=== PATIENT | female | born 1980 | race Caucasian/White ===

== ENCOUNTER 2020-04-26 19:25 | Emergency (ER) | payer OTHER, SELFPAY ==
--- NOTE | ~2020-04-26 | XR_ITS ---
EXAMINATION: XR CHEST CLINICAL INFORMATION: Pleuritic chest pain. COMPARISON: Most recent chest radiograph dated 11/04/2018. TECHNIQUE: 2 views of the chest were obtained. FINDINGS: The lungs are clear. The cardiomediastinal silhouette is normal in size. There is no pleural effusion or pneumothorax. No acute osseous abnormality. XR/XR chest 2V IMPRESSION: No acute cardiopulmonary findings.
--- NOTE | 2020-04-26 19:51 | ECG_ITS ---
Test Reason : CP Blood Pressure : / mmHG Vent. Rate : 078 BPM Atrial Rate : 078 BPM P-R Int : 146 ms QRS Dur : 082 ms QT Int : 392 ms P-R-T Axes : 031 016 011 degrees QTc Int : 446 ms Normal sinus rhythm Possible Left atrial enlargement Borderline ECG When compared with ECG of 04-NOV-2018 01:47, No significant change was found Referred By: Generic ED Physician Electronically Signed By:SARA BARR
[2020-04-26 20:29] VITALS: BP 128/73; PULSE 73; RESP 18; TEMP 36.6; O2SAT 99; BMI 25.0
--- NOTE | 2020-04-26 20:37 | ED_ITS ---
HPI - Chest Pain General Chief Complaint: Chest Pain Stated Complaint: CHEST PAIN Time Seen by Provider: 04/26/20 21:08 Source: patient Mode of arrival: ambulatory Limitations: no limitations History of Present Illness HPI narrative: Patient presents to ED for chest pain on inspiration for 1 week. Patient states she has been stressed and had symptoms such as anxiety described as tingling in face and extremities, sometimes chest pain on inspiration. Patient states having family issues. Patient denies any shortness of breath on exertion, swelling of lower extremity, calf pain, coughing up blood, fever, chills, recent long travel, recent surgery, control use, or any history of blood clots Related Data Allergies Allergy/AdvReac Type Severity Reaction Status Date / Time Sulfa (Sulfonamide Allergy Mild RASH Unverified 10/24/19 18:01 Antibiotics) [SULFA (SULFONAMIDE ANTIBIOTICS)] Review of Systems Review of Systems: Yes all other systems are reviewed and are negative Constitutional: Constitutional: Reports as per HPI and Reports no additional constitutional complaints Eyes: Eyes: Reports as per HPI and Reports no additional eye complaints ENT: Reports system reviewed and no additional complaints, except as documented and Reports as per HPI Cardiovascular: Cardiovascular: Reports as per HPI, Reports no additional cardiovascular complaints and Reports chest pain Respiratory: Respiratory: Reports as per HPI and Reports no additional respiratory complaints Gastrointestinal: Gastrointestinal: Reports as per HPI and Reports no additional gastrointestinal complaints Genitourinary: Genitourinary: Reports no additional female genitourinary complaints and Reports as per HPI Musculoskeletal: Musculoskeletal: Reports no additional musculoskeletal complaints and Reports as per HPI Neurologic: Reports system reviewed and no additional complaints, except as documented and Reports as per HPI Psychiatric: Psychiatric: Reports no additional psychiatric complaints and Reports as per HPI Comments: Anxiety [facility] Past Medical History Medical History (Updated 04/27/20 @ 00:01 by Background Daemon) No known health problems Social History Social History Alcohol intake: never Smoking Status: Never smoker Use of substances other than those prescribed or required for medical reasons: No Advance Directives: No Physical Exam Vital Signs: Vital Signs: Last Vital Signs Temp 97.9 F 04/26/20 20:29 Pulse 73 04/26/20 20:29 Resp 18 04/26/20 20:29 BP 128/73 04/26/20 20:29 Pulse Ox 99 04/26/20 20:29 Body Mass Index 25.0 Const: General: cooperative, healthy appearing, comfortable, no acute distress, well developed, alert, awake and Physically active Orientation/consciousness: patient oriented x3 HENMT: Head: Yes normal to inspection, Yes No palpable skull fracture present, Yes normocephalic, Yes atraumatic and No abrasion Eyes: General: appearance normal, both eyes and all related structures Neck: Neck: Yes normal visual inspection, Yes full ROM, Yes no lymphadenopathy, Yes no meningeal signs, Yes trachea midline, Yes supple and No tender Chest: Chest palpation & inspection: normal inspection of the chest and normal palpation of entire chest wall Resp: Effort & Inspection: normal respiratory effort and able to speak in complete sentences Auscultation: clear to auscultation bilaterally Cardio: Jugular venous distension: no JVD Heart sounds: S1 normal heart sound present and S2 normal heart sound present GI: Inspection: Yes normal to inspection and No abdominal wall ecchymosis Palpation (GI): Soft to palpation, not firm, nontender, no guarding and not rigid : General: No CVA tenderness and Yes no CVA tenderness Back/Spine/Pelvis: Back: no CVA tenderness, No CVA tenderness and No back tenderness Skin: General skin exam: no rashes or lesions noted and elasticity normal Neuro: General: patient oriented x3, no meningeal signs and CN's II-XI intact bilaterally Cranial nerves: Yes CN's II-XII intact bilaterally Extrem: Other: Negative for any swelling, pitting edema, redness, or calf tenderness. General: Yes normal to inspection and Yes full ROM Psych: Appearance: grossly normal, well kempt and not disheveled Course Course Course Narrative: Patient admits having family issues with son causing tightness & chest pain. May be due to anxiety, but will do medical evaluation. Patient also states she has had negative COVID test 2 days ago and does not want another COVID test. Patient states he gets test every 2 weeks at work. Reevaluation(s) Reevaluation #1: EKG negative STEMI. Troponin -1 week of chest pain. D-dimer negative. Perc score 0. Chest x-ray normal. Labs are normal. Patient states she would like to be discharged and follow up with her doctor. Patient presently denies any chest pain Time: 22:52 [facility] - Chest Pain Lab Data Result diagrams: 04/26/20 21:08 04/26/20 21:08 Labs: Lab Results 04/26/20 04/26/20 04/26/20 Range/Units 21:08 21:08 21:08 WBC 8.7 (4.8-10.8) X10*3/uL RBC 4.34 (4.20-5.50) X10*6/uL Hgb 12.7 (12.0-16.0) g/dl Hct 38.9 (37-47) % MCV 89.6 (80-98) fL MCH 29.3 (27.0-33.0) pg MCHC 32.6 (31.0-35.0) g/dl RDW 12.0 (11.0-16.0) % Plt Count 237 (160-400) X10*3/uL MPV 11.2 (9.4-12.3) fL Immature Gran % (Auto) 0.1 (0.0-0.4) % Neut % (Auto) 56.8 (45-73) % Lymph % (Auto) 32.0 (20-40) % [place] % (Auto) 7.9 (2-11) % Eos % (Auto) 2.6 (0-4) % Baso % (Auto) 0.6 (0-2) % Lymph # (Auto) 2.8 (1.2-4.9) X10*3/uL [place] # (Auto) 0.7 (0.1-1.2) X10*3/uL Eos # (Auto) 0.2 (0.0-0.4) X10*3/uL Baso # (Auto) 0.1 (0.0-0.2) X10*3/uL Abs Immat Gran (auto) 0.01 (0.00-0.03) X10*3/uL Absolute Neuts (auto) 5.0 (2.0-8.3) X10*3/uL Absolute Nucleated RBC 0.000 (0.0-0.012) X10*3/uL Nucleated RBC % (auto) 0.0 (0.0-0.2) /100WBC PT 12.3 (10.8-13.0) SEC INR 1.0 (0.9-1.1) APTT 31.1 (24.1-38.0) SEC D-Dimer < 200 NG/ML Sodium 140 (135-145) mmol/L Potassium 3.8 (3.3-5.1) mmol/L Chloride 102 (96-108) mmol/L Carbon Dioxide 27 (22-29) mmol/L Anion Gap 15 (12-20) BUN 17 H (9-16) mg/dL Creatinine 0.68 (0.5-1.4) mg/dL Estim Creat Clear Calc 98.9 Estimated GFR > 60 Random Glucose 99 (60-115) mg/dL Calcium 8.9 (8.4-10.2) mg/dL Total Bilirubin 0.2 (0.0-1.0) mg/dL AST 25 (5-31) U/L ALT 42 H (0-31) U/L Alkaline Phosphatase 58 (39-117) U/L Troponin I High Sens (<3.5-17.0) ng/L Total Protein 7.6 (6.5-8.0) g/dL Albumin 4.1 (3.5-5.0) g/dL Beta HCG, Quant < 2 mIU/mL 04/26/20 Range/Units 21:08 WBC (4.8-10.8) X10*3/uL RBC (4.20-5.50) X10*6/uL Hgb (12.0-16.0) g/dl Hct (37-47) % MCV (80-98) fL MCH (27.0-33.0) pg MCHC (31.0-35.0) g/dl RDW (11.0-16.0) % Plt Count (160-400) X10*3/uL MPV (9.4-12.3) fL Immature Gran % (Auto) (0.0-0.4) % Neut % (Auto) (45-73) % Lymph % (Auto) (20-40) % [place] % (Auto) (2-11) % Eos % (Auto) (0-4) % Baso % (Auto) (0-2) % Lymph # (Auto) (1.2-4.9) X10*3/uL [place] # (Auto) (0.1-1.2) X10*3/uL Eos # (Auto) (0.0-0.4) X10*3/uL Baso # (Auto) (0.0-0.2) X10*3/uL Abs Immat Gran (auto) (0.00-0.03) X10*3/uL Absolute Neuts (auto) (2.0-8.3) X10*3/uL Absolute Nucleated RBC (0.0-0.012) X10*3/uL Nucleated RBC % (auto) (0.0-0.2) /100WBC PT (10.8-13.0) SEC INR (0.9-1.1) APTT (24.1-38.0) SEC D-Dimer NG/ML Sodium (135-145) mmol/L Potassium (3.3-5.1) mmol/L Chloride (96-108) mmol/L Carbon Dioxide (22-29) mmol/L Anion Gap (12-20) BUN (9-16) mg/dL Creatinine (0.5-1.4) mg/dL Estim Creat Clear Calc Estimated GFR Random Glucose (60-115) mg/dL Calcium (8.4-10.2) mg/dL Total Bilirubin (0.0-1.0) mg/dL AST (5-31) U/L ALT (0-31) U/L Alkaline Phosphatase (39-117) U/L Troponin I High Sens < 3.5 (<3.5-17.0) ng/L Total Protein (6.5-8.0) g/dL Albumin (3.5-5.0) g/dL Beta HCG, Quant mIU/mL ECG Data ECG #1: Interpretation: Normal sinus rhythm. Ventricular rate 78. Pr interval 146. QRS 82. QTC 446. Negative STEMI. Discharge Plan Discharge Clinical Impression: Chest pain, Atypical chest pain Patient Disposition: Home, Self-Care Instructions: Chest Pain (ED) Additional Instructions: Return to the ED immediately for swelling of lower extremity, coughing up blood, fever, chills, worsening chest pain, calf pain, passing out, dizziness or any other concerning symptoms. Please follow-up with the PCP. EKG normal. Do troponin was negative. D-dimer was negative. chest x-ray was normal. Stand Alone Forms: Work/School Release Interventions: ED Discharge Assessment Last Done: 04/26/20 23:13 Discharge Date/Time: 04/26/20 23:15 Print Language: Persian
[2020-04-26 21:13] LABS: MANUAL DIFF FLAG NO
[2020-04-26 21:21] LABS: Basophils Absolute Auto 0.1 X10*3/uL (0.0-0.2); Basophils Percent Auto 0.6 % (0-2); Eosinophils Absolute Auto 0.2 X10*3/uL (0.0-0.4); Eosinophils Percent Auto 2.6 % (0-4); Hematocrit 38.9 % (37-47); Hemoglobin 12.7 g/dl (12.0-16.0); Imm Gran Abs Auto 0.01 X10*3/uL (0.00-0.03); Imm Gran Pct Auto 0.1 % (0.0-0.4); Lymphocytes Absolute Auto 2.8 X10*3/uL (1.2-4.9); Mean Corpuscular HGB Conc 32.6 g/dl (31.0-35.0); Mean Corpuscular Hemoglobin 29.3 pg (27.0-33.0); Mean Corpuscular Volume 89.6 fL (80-98); Mean Platelet Volume 11.2 fL (9.4-12.3); Monocytes Absolute Auto 0.7 X10*3/uL (0.1-1.2); Monocytes Percent Auto 7.9 % (2-11); Neutrophils Percent Auto 56.8 % (45-73); Platelet Count 237 X10*3/uL (160-400); Red Blood Count 4.34 X10*6/uL (4.20-5.50); White Blood Count 8.7 X10*3/uL (4.8-10.8)
[2020-04-26 21:29] LABS: Prothrombin Time 12.3 SEC (10.8-13.0)
[2020-04-26 21:32] LABS: Partial Thromboplastin Time 31.1 SEC (24.1-38.0)
[2020-04-26 21:34] LABS: Alanine Aminotransferase 42 U/L (0-31); Albumin Level 4.1 g/dL (3.5-5.0); Alkaline Phosphatase 58 U/L (39-117); Anion Gap 15 (12-20); Aspartate Amino Transferase 25 U/L (5-31); Bilirubin Total 0.2 mg/dL (0.0-1.0); Blood Urea Nitrogen 17 mg/dL (9-16); Calcium 8.9 mg/dL (8.4-10.2); Carbon Dioxide 27 mmol/L (22-29); Chloride 102 mmol/L (96-108); Creatinine Clr Calc Pharmacy 98.9; D Dimer < 200 NG/ML; Estimated Glomerular Filt Rate > 60; Glucose Random 99 mg/dL (60-115); Potassium 3.8 mmol/L (3.3-5.1); Sodium 140 mmol/L (135-145); Total Protein 7.6 g/dL (6.5-8.0)
[2020-04-26 21:40] LABS: HCG Quantitative < 2 mIU/mL
[2020-04-26 21:41] LABS: Troponin-I High Sensitivity < 3.5 ng/L (<3.5-17.0)
== END 2020-04-26 23:15 | disposition home or self-care (01) ==
PROVIDERS: Physician Assistant; Emergency Provider Internal Medicine
DX: R07.9 Chest pain, unspecified (principal); R07.89 Other chest pain
CPT/HCPCS: 36415; 71046; 80053; 84484; 84702; 85025; 85379; 85610; 85730; 93005; 99283; 99284

== ENCOUNTER 2020-05-05 09:56 | Outpatient (REF) | payer OTHER, SELFPAY ==
[2020-05-05 13:14] LABS: SARS COV2 PCR INHOUSE NEGATIVE (Negative)
== END 2020-05-05 09:57 | disposition home or self-care (01) ==
LOC: HO.LAB 09:56
PROVIDERS: Visit Provider Internal Medicine
DX: Z20.822 Contact with and (suspected) exposure to COVID-19 (principal)
CPT/HCPCS: C9803; U0003

== ENCOUNTER 2020-09-22 07:26 | Outpatient (REF) | payer OTHER, SELFPAY | END 2020-09-22 07:27 | disposition home or self-care (01) | LOC: HO.LAB 07:26 | PROVIDERS: Visit Provider Internal Medicine | DX: Z20.822 Contact with and (suspected) exposure to COVID-19 (principal) | CPT/HCPCS: C9803; U0003; U0005 ==

== ENCOUNTER 2020-10-01 08:11 | Outpatient (REF) | payer OTHER, SELFPAY ==
[2020-10-01 09:34] LABS: COVID-19 Test Negative (Negative)
== END 2020-10-01 08:12 | disposition home or self-care (01) ==
LOC: HO.LAB 08:11
PROVIDERS: Visit Provider Internal Medicine
DX: Z20.822 Contact with and (suspected) exposure to COVID-19 (principal)
CPT/HCPCS: 36415; 87635; C9803

== ENCOUNTER 2021-02-18 08:30 | Outpatient (REF) | payer OTHER, SELFPAY ==
[2021-02-18 10:06] LABS: COVID-19 Test Negative (Negative)
== END 2021-02-18 08:31 | disposition home or self-care (01) ==
LOC: HO.LAB 08:30
PROVIDERS: Visit Provider Internal Medicine
DX: Z20.822 Contact with and (suspected) exposure to COVID-19 (principal)
CPT/HCPCS: 87635; C9803

== ENCOUNTER 2021-04-13 15:59 | Emergency (ER) | payer OTHER, SELFPAY ==
[2021-04-13 16:40] VITALS: BP 141/62; PULSE 76; RESP 18; TEMP 36.9; O2SAT 97; BMI 22.6
[2021-04-13 17:23] LABS: MANUAL DIFF FLAG NO
[2021-04-13 17:47] LABS: Anion Gap 11 (12-20); Blood Urea Nitrogen 13 mg/dL (9-16); Calcium 9.7 mg/dL (8.4-10.2); Carbon Dioxide 28 mmol/L (22-29); Chloride 104 mmol/L (96-108); Creatinine Clr Calc Pharmacy 97.9; Estimated Glomerular Filt Rate > 60; Glucose Random 95 mg/dL (60-115); Sodium 139 mmol/L (135-145)
[2021-04-13 18:21] LABS: Basophils Percent Auto 0.4 % (0-2); Eosinophils Absolute Auto 0.1 X10*3/uL (0.0-0.4); Eosinophils Percent Auto 1.6 % (0-4); Hematocrit 39.1 % (37.0-47.0); Hemoglobin 12.7 g/dl (12.0-16.0); Imm Gran Abs Auto 0.01 X10*3/uL (0.00-0.03); Imm Gran Pct Auto 0.1 % (0.0-0.4); Lymphocytes Percent Auto 27.9 % (20-40); Mean Corpuscular HGB Conc 32.5 g/dl (31.0-35.0); Mean Corpuscular Hemoglobin 28.4 pg (27.0-33.0); Mean Corpuscular Volume 87.5 fL (80.0-98.0); Mean Platelet Volume 11.8 fL (9.4-12.3); Monocytes Absolute Auto 0.5 X10*3/uL (0.1-1.2); Monocytes Percent Auto 7.3 % (2-11); Neutrophils Absolute Auto 4.4 x10*3/uL (2.0-8.3); Neutrophils Percent Auto 62.7 % (45-73); Platelet Count 229 X10*3/uL (160-400); Red Blood Count 4.47 X10*6/uL (4.20-5.50); Red Cell Distribution Width 11.9 % (11.0-16.0)
--- NOTE | 2021-04-13 20:20 | ED.HA ---
HPI - Headache General Chief Complaint: Headache Stated Complaint: migraine Time Seen by Provider: 04/13/21 20:10 Source: patient Mode of arrival: ambulatory Limitations: no limitations History of Present Illness HPI Narrative: 40-year-old female with history of migraine headaches who presents emergency department for evaluation of a migraine headache. Patient states that the headache started on Monday (3 days prior to evaluation). She states that the headache came on gradually Monday morning is been constant since that time. She describes the headache as a pressure/heaviness like sensation located in the posterior parietal aspect on both sides of her head. She states that the headache waxes and wanes in intensity and is 10/10 at its worst. Currently the headache is 5/10. She has had associated nausea and she states she vomited 3 times today. The patient states that she gets migraines frequently in her last migraine headache was 2 months prior. She denied fever, chills, rhinorrhea, sore throat, cough, chest pain, shortness of breath, numbness, weakness. She states that she took her usual medications which included Excedrin migraine and rizatriptan without any relief of her headaches. Related Data Allergies Allergy/AdvReac Type Severity Reaction Status Date / Time Sulfa (Sulfonamide Allergy Mild RASH Unverified 10/24/19 18:01 Antibiotics) [SULFA (SULFONAMIDE ANTIBIOTICS)] Review of Systems Review of Systems: Yes all other systems are reviewed and are negative PMFSH Past Medical History Medical History No known health problems Social History Social History Alcohol intake: never Advance Directives: No Advance Directives Information Provided: No Physical Exam Vital Signs: Vital Signs: Last Vital Signs Temp 98.5 F 04/13/21 16:40 Pulse 76 04/13/21 16:40 Resp 18 04/13/21 16:40 BP 141/62 H 04/13/21 16:40 Pulse Ox 97 04/13/21 16:40 BMI result Body Mass Index 22.6 Const: General: cooperative and no acute distress Orientation/consciousness: oriented to person and oriented to place Limitations: no limitations HENMT: Head: Yes normal to inspection, Yes normocephalic and Yes atraumatic Ears: external ears normal General nose exam: Normal external nose present Face and sinus: Yes normal facial exam Mouth: Normal oral and palatal mucosa present Throat: Yes posterior oropharynx normal Eyes: General: appearance normal, both eyes and all related structures Pupils: Equal, round and reactive pupils present Neck: Neck: Yes normal visual inspection, Yes no lymphadenopathy, Yes trachea midline and Yes supple Chest: Chest palpation & inspection: normal inspection of the chest and normal palpation of entire chest wall Resp: Effort & Inspection: normal respiratory effort and able to speak in complete sentences Auscultation: clear to auscultation bilaterally Cardio: Rate: regular rate Rhythm: regular rhythm Heart sounds: S1 normal heart sound present, S2 normal heart sound present and no murmurs GI: Inspection: Yes normal to inspection Palpation (GI): Soft to palpation, nontender and no guarding Auscultation: normal bowel sounds : General: Yes no CVA tenderness Back/Spine/Pelvis: Back: no CVA tenderness Skin: General skin exam: no rashes or lesions noted Neuro: General: oriented to person and oriented to place Cranial nerves: Yes CN's II-XII intact bilaterally and Yes Equal, round and reactive pupils present Cognition (Neuro): normal cognition Motor exam (neuro): 5/5 motor strength present throughout Extrem: General: Yes normal to inspection Psych: Appearance: grossly normal Speech and movement: Normal speech and movement present Affect: normal affect Attitude: cooperative Thought process: Normal thought process present Thought content: Normal thought content present Course Course Course Narrative: 40-year-old female who presents emergency department for evaluation migraine headache x3 days per patient has a history of migraine headaches. The patient did have associated nausea and vomited 3 times today. Patient's vital signs were normal. The patient's physical examination was unremarkable. The patient was ordered to get Toradol 30 mg IV, Benadryl 50 mg IV and Reglan 10 mg IV. 2050: At the end of my shift, the patient is still waiting to get her medications. Therefore, the patient's care will be turned over to my colleague, Dr. Rosaline Duff. MDM - Headache Lab Data Result diagrams: 04/13/21 17:17 04/13/21 17:17 Labs: Lab Results 04/13/21 04/13/21 Range/Units 17:17 17:17 WBC 7.0 (4.8-10.8) X10*3/uL RBC 4.47 (4.20-5.50) X10*6/uL Hgb 12.7 (12.0-16.0) g/dl Hct 39.1 (37.0-47.0) % MCV 87.5 (80.0-98.0) fL MCH 28.4 (27.0-33.0) pg MCHC 32.5 (31.0-35.0) g/dl RDW 11.9 (11.0-16.0) % Plt Count 229 (160-400) X10*3/uL MPV 11.8 (9.4-12.3) fL Immature Gran % (Auto) 0.1 (0.0-0.4) % Neut % (Auto) 62.7 (45-73) % Lymph % (Auto) 27.9 (20-40) % [place] % (Auto) 7.3 (2-11) % Eos % (Auto) 1.6 (0-4) % Baso % (Auto) 0.4 (0-2) % Lymph # (Auto) 2.0 (1.2-4.9) X10*3/uL [place] # (Auto) 0.5 (0.1-1.2) X10*3/uL Eos # (Auto) 0.1 (0.0-0.4) X10*3/uL Baso # (Auto) 0.0 (0.0-0.2) X10*3/uL Abs Immat Gran (auto) 0.01 (0.00-0.03) X10*3/uL Absolute Neuts (auto) 4.4 (2.0-8.3) x10*3/uL Absolute Nucleated RBC 0.000 (0.0-0.012) X10*3/uL Nucleated RBC % (auto) 0.0 (0.0-0.2) /100WBC Sodium 139 (135-145) mmol/L Potassium 4.0 (3.3-5.1) mmol/L Chloride 104 (96-108) mmol/L Carbon Dioxide 28 (22-29) mmol/L Anion Gap 11 L (12-20) BUN 13 (9-16) mg/dL Creatinine 0.68 (0.5-1.4) mg/dL Estim Creat Clear Calc 97.9 Estimated GFR > 60 Random Glucose 95 (60-115) mg/dL Calcium 9.7 D (8.4-10.2) mg/dL Discharge Plan Discharge Clinical Impression: Migraine, Vomiting, Acute dehydration Patient Disposition: Still a Patient Instructions: Migraine Headache (ED) Additional Instructions: Continue taking her medications as prescribed by your doctor for your migraine headaches. Follow-up with your doctor in 2 days. Please return to the emergency department if your symptoms get worse or if you develop any symptoms that are concerning to you.
[2021-04-13 21:06] VITALS: BP 116/68; PULSE 70; RESP 14; TEMP 36.9; O2SAT 96
[2021-04-13] MEDS: Ketorolac Tromethamine 15 MG/ML VIAL IVPUSH (21:52)
[2021-04-13] MEDS: Metoclopramide HCl 10 MG/2 ML VIAL IVPUSH (21:53)
[2021-04-13] MEDS: diphenhydrAMINE HCL 50 MG/ML VIAL IVPUSH (21:53)
[2021-04-13] MEDS: 0.9 % Sodium Chloride 1,000 ML 999 ML IV (21:53)
[2021-04-13 22:31] VITALS: BP 126/77; PULSE 67; RESP 12; TEMP 36.9; O2SAT 99
== END 2021-04-14 00:07 | disposition home or self-care (01) ==
PROVIDERS: Emergency Provider Emergency Medicine Emergency Medical Services
DX: G43.909 Migraine, unspecified, not intractable, without status migrainosus (principal); R11.10 Vomiting, unspecified; E86.0 Dehydration
CPT/HCPCS: 36415; 80048; 85025; 96361; 96374; 96375; 99283; 99284; J1200; J1885; J2765

== ENCOUNTER 2022-06-19 16:10 | Emergency (ER) | payer OTHER, SELFPAY ==
[2022-06-19 16:13] VITALS: BP 156/69; PULSE 76; RESP 16; TEMP 36.9; O2SAT 99; BMI 22.5
--- NOTE | 2022-06-19 16:13 | ED_ITS ---
HPI - General Adult General Chief complaint: Headache Stated complaint: Severe Migraine Time Seen by Provider: 06/19/22 16:41 Source: patient Mode of arrival: ambulatory Limitations: no limitations History of Present Illness HPI narrative: This is a 41-year-old female presenting to the emergency department complaints of left-sided headache, she tells me she has a history of migraines and this feels like her typical migraine however not going away. She is to take here set for migraines however recently taken off of it, she is currently on sumatriptan which she is taking in with little to no relief. This migraine has been going on since this past Monday, 7 days ago, however worsening as of today. Reports a ssociated nausea, sensitivity light. Patient denies vision changes, dizziness, weakness, chest pain, shortness of breath, fevers and chills Related Data Previous Rx's Medication Instructions Recorded diphenhydramine HCl 25 mg capsule 25 mg PO TID PRN allergic reaction 06/19/22 (Benadryl) #20 caps ketorolac 10 mg tablet 10 mg PO TID PRN pain 5 days #15 06/19/22 tabs metoclopramide HCl 10 mg tablet 10 mg PO Q6H PRN headache #20 tabs 06/19/22 (Reglan) Allergies Allergy/AdvReac Type Severity Reaction Status Date / Time Sulfa (Sulfonamide Allergy Mild RASH Unverified 10/24/19 18:01 Antibiotics) [SULFA (SULFONAMIDE ANTIBIOTICS)] Review of Systems Review of Systems: Constitutional : No Weight loss, No Fever, No Chills, No Fatigue, No Malaise ENT/Mouth : No sore throat, No Rhinorrhea Eyes: No Eye Pain, No Swelling, No Redness Cardiovascular : No Chest Pain, No SOB, No Dyspnea on Exertion, No Orthopnea, No Edema, No Palpitations Respiratory : No Cough, No Sputum, No Wheezing Gastrointestinal : No Nausea, No Vomiting, No Diarrhea, No Constipation, No abdominal Pain, No Hematochezia, No Melena Genitourinary : No Dysuria, No Urinary Frequency, No Hematuria, Musculoskeletal : No joint pain, No Myalgias, No Joint Swelling Skin : No Skin Lesions, No rash Neuro : No Weakness, No Numbness, No Dizziness, + Headache Psych : No Anxiety/Panic, No Depression All other systems reviewed and are negative Yes all other systems are reviewed and are negative [facility] Past Medical History Attestation statement: The following information was validated with the patient. Source: old records reviewed and nursing notes reviewed Medical History No known health problems Social History Social History Alcohol intake: unknown Smoked in Last 30 Days: No Use of substances other than those prescribed or required for medical reasons: No Physical Exam ED Vital Signs: Vital Signs - 24 hr 06/19/22 16:13 06/19/22 16:49 Temperature 98.4 F 98.1 F Pulse Rate 76 72 Respiratory Rate 16 16 Blood Pressure 156/69 H 124/68 Pulse Oximetry 99 98 Oxygen Delivery Method Room Air Room Air BMI result Body Mass Index 22.5 Vital signs stable Appearance: Alert.? Oriented X3.? No acute distress.? Head: Normocephalic, atraumatic, no step-offs or deformities Eyes: Pupils equal, round and reactive to light.? Extraocular movements intact pain-free ENT: Pharynx normal.? Neck: Normal inspection.? Neck supple.? CVS: Normal heart rate and rhythm.? Pulses normal.? Respiratory: No respiratory distress.? Breath sounds normal.? Abdomen: Soft and nontender.? Skin: Skin warm and dry.? Normal skin color.? Normal skin turgor.? Extremities: No lower extremity edema.? No calf ttp. 5/5 strength to bilateral upper and lower extremities Back: No midline tenderness, no C-spine tenderness, full range of motion, no CVA tenderness bilaterally Neuro: Oriented X 3.? No motor deficit.? No sensory deficit. CN 2-12 intact. Negative Romberg and pronator drift. Normal [id number], [id number], steady tandem gait with normal coordination. NIH stroke scale 0 Course Course Course Narrative: RME performed by Estrella Spain PA-C. Patient is a 41 year old assigned female at presenting to the emergency department with a migraine. Patient states that she has been having a migraine and her new doctor is trying to get her off of fiorcet which is the only thing that usually helps her headache. Labs ordered. Patient placed back in the waiting room pending room availability and results. Reevaluation(s) Reevaluation #1: CBC within normal limits. Chemistry with no acute findings requiring intervention. Beta hCG negative. Urine without infection. Patient reports resolution of headache. She is feeling well would like to go home. Neuro nonfocal at time of discharge, ambulatory with steady gait normal coordination. NIH Stroke Scale remains 0. Educated patient on diagnosis and treatment plan, answered all question, patient verbalizes understanding. At this time patient will be discharged home, advised to return with new or worsening symptoms. Educated on worrisome signs and symptoms and when to return. At this time I feel comfortable discharge home. Time: 17:50 Medications Administered Discontinued Medications Generic Name Dose Route Start Last Admin Trade Name Freq PRN Reason Stop Dose Admin Diphenhydramine HCl 50 mg 06/19/22 17:06 06/19/22 17:17 Diphenhydramine Hcl 50 Mg/Ml Vial IVPUSH 06/19/22 17:07 50 mg ONCE ONE Administration Ketorolac Tromethamine 30 mg 06/19/22 17:06 06/19/22 17:17 Ketorolac Tromethamine 15 Mg/Ml Vial IVPUSH 06/19/22 17:07 30 mg ONCE ONE Administration Metoclopramide HCl 10 mg 06/19/22 17:06 06/19/22 17:18 Metoclopramide Hcl 10 Mg/2 Ml Vial IVPUSH 06/19/22 17:07 10 mg ONCE ONE Administration Medical Decision Making Medical Decision Making [facility] Narrative: [id number] 41-year-old female presents with migraine since last Monday, not improving with sumatriptan Physical exam benign. NIH stroke scale 0. Neuro nonfocal. Cerebellar intact. This is likely typical migraine versus complex migraine. Unlikely intracranial hemorrhage, stroke, posterior stroke, meningitis or encephalitis Plan at this time basic labs, will give Toradol, Reglan and Benadryl. Differential Diagnosis Differential Diagnoses: The differential diagnosis associated with the present ation includes This is likely typical migraine versus complex migraine. Unlikely intracranial hemorrhage, stroke, posterior stroke, meningitis or encephalitis Admission/Observation Consideration of admission/observation: Escalation of care including admission/observation considered Lab Data [facility] Lab Attestation statement: I reviewed the patient's lab results. 06/19/22 16:44 06/19/22 16:44 Labs: Lab Results 06/19/22 06/19/22 06/19/22 Range/Units 16:44 16:44 17:13 WBC 8.3 (4.8-10.8) X10*3/uL RBC 4.41 (4.20-5.50) X10*6/uL Hgb 12.9 (12.0-16.0) g/dl Hct 39.4 (37.0-47.0) % MCV 89.3 (80.0-98.0) fL MCH 29.3 (27.0-33.0) pg MCHC 32.7 (31.0-35.0) g/dl RDW 11.9 (11.0-16.0) % Plt Count 234 (160-400) X10*3/uL MPV 11.3 (9.4-12.3) fL Immature Gran % (Auto) 0.2 (0.0-0.4) % Neut % (Auto) 60.5 (45-73) % Lymph % (Auto) 29.4 (20-40) % Glenn % (Auto) 7.1 (2-11) % Eos % (Auto) 2.2 (0-4) % Baso % (Auto) 0.6 (0-2) % Lymph # (Auto) 2.4 (1.2-4.9) X10*3/uL Glenn # (Auto) 0.6 (0.1-1.2) X10*3/uL Eos # (Auto) 0.2 (0.0-0.4) X10*3/uL Baso # (Auto) 0.1 (0.0-0.2) X10*3/uL Abs Immat Gran (auto) 0.02 (0.00-0.03) X10*3/uL Absolute Neuts (auto) 5.0 (2.0-8.3) x10*3/uL Absolute Nucleated RBC 0.000 (0.0-0.012) X10*3/uL Nucleated RBC % (auto) 0.0 (0.0-0.2) /100WBC Sodium 140 (135-145) mmol/L Potassium 4.5 (3.3-5.1) mmol/L Chloride 105 (96-108) mmol/L Carbon Dioxide 28 (22-29) mmol/L Anion Gap 12 (12-20) BUN 15 (9-16) mg/dL Creatinine 0.74 (0.5-1.4) mg/dL Estim Creat Clear Calc 89.1 Estimated GFR > 60 Random Glucose 96 (60-115) mg/dL Calcium 9.4 (8.4-10.2) mg/dL Magnesium 1.8 (1.6-2.6) mg/dL Total Bilirubin 0.6 (0.0-1.0) mg/dL AST 17 (5-31) U/L ALT 25 (0-31) U/L Alkaline Phosphatase 62 (39-117) U/L Total Protein 7.5 (6.5-8.0) g/dL Albumin 4.1 (3.5-5.0) g/dL Beta HCG, Quant < 2 mIU/mL Urine Color Yellow Urine Appearance Clear Urine pH 6.0 (5.0-9.0) Ur Specific [place] 1.020 (1.005-1.025) Urine Protein Negative (Neg-Trace) mg/dL Urine Glucose (UA) Negative (Negative) mg/dL Urine Ketones Negative (Negative) mg/dL Urine Blood Negative (Negative) Urine Nitrite Negative (Negative) Ur Leukocyte Esterase Negative (Negative) Tests considered The following testing was considered but not selected: Patient's NIH stroke scale is 0, neuro nonfocal and cerebellar intact no indication for imaging at this time risks outweigh benefits. Prescription Management I considered prescription management with: Pain Medication Core Measures AMI core measures followed: Yes Measure exclusions: not indicated Critical Care Time Critical Care Time Critical Care Time: No Discharge Plan Discharge Clinical Impression: Migraine Patient Disposition: Home, Self-Care Instructions: Migraine Headache (ED) Additional Instructions: Take your medications as prescribed. If you were prescribed antibiotics today, it is important that you take your medication to their entirety, do not skip any doses, do not finish them early. Follow-up with your primary care provider this week. Follow up with neurology Return to the emergency department with new or worsening symptoms. Such as fevers, chills, chest pain, shortness of breath, nausea, vomiting, dizziness, headache, vision changes, lethargy In case of emergency call 911 Prescriptions: New ketorolac 10 mg tablet 10 mg PO TID PRN (Reason: pain) 5 Days Qty: 15 0RF diphenhydramine HCl [Benadryl] 25 mg capsule 25 mg PO TID PRN (Reason: allergic reaction) Qty: 20 0RF metoclopramide HCl [Reglan] 10 mg tablet 10 mg PO Q6H PRN (Reason: headache) Qty: 20 0RF Referrals: Physician,Unknown J [Primary Care Provider] - 2 days Stand Alone Forms: Work/School Release
[2022-06-19 16:49] VITALS: BP 124/68; PULSE 72; RESP 16; TEMP 36.7; O2SAT 98
[2022-06-19 16:50] LABS: MANUAL DIFF FLAG NO
[2022-06-19 16:51] LABS: Basophils Absolute Auto 0.1 X10*3/uL (0.0-0.2); Basophils Percent Auto 0.6 % (0-2); Eosinophils Absolute Auto 0.2 X10*3/uL (0.0-0.4); Eosinophils Percent Auto 2.2 % (0-4); Hematocrit 39.4 % (37.0-47.0); Hemoglobin 12.9 g/dl (12.0-16.0); Imm Gran Abs Auto 0.02 X10*3/uL (0.00-0.03); Imm Gran Pct Auto 0.2 % (0.0-0.4); Lymphocytes Absolute Auto 2.4 X10*3/uL (1.2-4.9); Lymphocytes Percent Auto 29.4 % (20-40); Mean Corpuscular HGB Conc 32.7 g/dl (31.0-35.0); Mean Corpuscular Hemoglobin 29.3 pg (27.0-33.0); Mean Corpuscular Volume 89.3 fL (80.0-98.0); Mean Platelet Volume 11.3 fL (9.4-12.3); Monocytes Absolute Auto 0.6 X10*3/uL (0.1-1.2); Monocytes Percent Auto 7.1 % (2-11); Neutrophils Percent Auto 60.5 % (45-73); Platelet Count 234 X10*3/uL (160-400); Red Blood Count 4.41 X10*6/uL (4.20-5.50); Red Cell Distribution Width 11.9 % (11.0-16.0); White Blood Count 8.3 X10*3/uL (4.8-10.8)
[2022-06-19 17:13] LABS: Alanine Aminotransferase 25 U/L (0-31); Albumin Level 4.1 g/dL (3.5-5.0); Alkaline Phosphatase 62 U/L (39-117); Anion Gap 12 (12-20); Aspartate Amino Transferase 17 U/L (5-31); Bilirubin Total 0.6 mg/dL (0.0-1.0); Blood Urea Nitrogen 15 mg/dL (9-16); Calcium 9.4 mg/dL (8.4-10.2); Carbon Dioxide 28 mmol/L (22-29); Chloride 105 mmol/L (96-108); Creatinine Clr Calc Pharmacy 89.1; Estimated Glomerular Filt Rate > 60; Glucose Random 96 mg/dL (60-115); Magnesium 1.8 mg/dL (1.6-2.6); Potassium 4.5 mmol/L (3.3-5.1); Sodium 140 mmol/L (135-145); Total Protein 7.5 g/dL (6.5-8.0)
[2022-06-19] MEDS: diphenhydrAMINE HCL 50 MG/ML VIAL IVPUSH (17:17)
[2022-06-19] MEDS: Ketorolac Tromethamine 15 MG/ML VIAL 30 MG IVPUSH (17:17)
[2022-06-19] MEDS: Metoclopramide HCl 10 MG/2 ML VIAL IVPUSH (17:18)
[2022-06-19 17:19] LABS: HCG Quantitative < 2 mIU/mL
[2022-06-19 17:43] LABS: Appearance Urine Clear; Color Urine Yellow; Glucose Urine UA Negative (Negative); Leukocyte Esterase Urine Negative (Negative); Nitrite Urine Negative (Negative); Urine Blood Negative (Negative); Urine Ketones Negative (Negative); Urine Protein Negative (Neg-Trace)
[2022-06-19 17:58] VITALS: BP 113/65; PULSE 68; RESP 16; TEMP 36.7; O2SAT 98
== END 2022-06-19 18:55 | disposition home or self-care (01) ==
PROVIDERS: Physician Assistant Medical; Emergency Provider Internal Medicine
DX: G43.909 Migraine, unspecified, not intractable, without status migrainosus (principal); Z79.899 Other long term (current) drug therapy
CPT/HCPCS: 36415; 80053; 81003; 83735; 84702; 85025; 96374; 96375; 99284; J1200; J1885; J2765

== ENCOUNTER 2023-01-14 17:12 | Emergency (ER) | payer OTHER, SELFPAY ==
[2023-01-14 17:32] VITALS: BP 126/55; PULSE 68; RESP 17; TEMP 36.4; O2SAT 99; BMI 26.5
--- NOTE | 2023-01-14 17:33 | ED_ITS ---
HPI - URI/Sore Throat General Chief Complaint: Upper Respiratory Symptoms Stated Complaint: ear and throat pain Time Seen by Provider: 01/14/23 18:34 Source: patient Mode of arrival: ambulatory Limitations: no limitations History of Present Illness HPI Narrative: 42-year-old female previously healthy here with complaints of left ear pain and sore throat for 3 days. Patient denies any fevers, chills, cough, chest pain, shortness of breath, difficulty swallowing, difficulty breathing. No recent travel. Patient reports multiple coworkers are sick with similar symptoms. Related Data Previous Rx's Medication Instructions Recorded diphenhydramine HCl 25 mg capsule 25 mg PO TID PRN allergic reaction 06/19/22 (Benadryl) #20 caps ketorolac 10 mg tablet 10 mg PO TID PRN pain 5 days #15 06/19/22 tabs metoclopramide HCl 10 mg tablet 10 mg PO Q6H PRN headache #20 tabs 06/19/22 (Reglan) Allergies Allergy/AdvReac Type Severity Reaction Status Date / Time Sulfa (Sulfonamide Allergy Mild RASH Unverified 10/24/19 18:01 Antibiotics) [SULFA (SULFONAMIDE ANTIBIOTICS)] Review of Systems Review of Systems: Yes all other systems are reviewed and are negative Constitutional: Constitutional: Reports no additional constitutional complaints, Denies body ache(s), Denies chills, Denies fever(s), Denies headache(s) and Denies weakness Eyes: Eyes: Reports no additional eye complaints and Denies change in vision ENT: Reports system reviewed and no additional complaints, except as documented, Denies dizziness, Reports otalgia, Denies headache(s), Denies nasal congestion, Denies nasal discharge, Denies neck pain and Reports sore throat Cardiovascular: Cardiovascular: Reports no additional cardiovascular complaints, Denies chest pain, Denies leg edema and Denies dyspnea Respiratory: Respiratory: Reports no additional respiratory complaints, Denies cough and Denies dyspnea Gastrointestinal: Gastrointestinal: Reports no additional gastrointestinal complaints, Denies abdominal pain, Denies diarrhea, Denies nausea and Denies vomiting Genitourinary: Genitourinary: Reports no additional female genitourinary complaints and Denies urinary incontinence Musculoskeletal: Musculoskeletal: Reports no additional musculoskeletal complaints, Denies back pain, Denies arthralgias, Denies joint swelling, Denies neck pain, Denies numbness and Denies tingling Integumentary/Breasts: Skin/Breast: Reports system reviewed and no additional complaints, except as docu and Denies rash Neurologic: Reports system reviewed and no additional complaints, except as documented, Denies Abnormal speech present, Denies dizziness, Denies headache(s), Denies numbness, Denies tingling and Denies weakness PMFSH Past Medical History Attestation statement: The following information was validated with the patient. Source: old records reviewed Medical History No known health problems Social History Social History Alcohol intake: unknown Advance Directives: No Advance Directives Information Provided: No Physical Exam Vital Signs: Vital Signs: Last Vital Signs Temp 97.5 F 01/14/23 17:32 Pulse 68 01/14/23 17:32 Resp 17 01/14/23 17:32 BP 126/55 L 01/14/23 17:32 Pulse Ox 99 01/14/23 17:32 O2 Del Method Room Air 01/14/23 17:32 BMI result Body Mass Index 26.5 Const: General: cooperative, healthy appearing, comfortable and no acute distress Orientation/consciousness: patient oriented x3 Limitations: no limitations HEENT: Head: Yes normal to inspection Ears: hearing grossly normal bilaterally, TM normal on the right, EAC's normal, mastoids normal, no periauricular adenopathy and TM abnormal (Left TM with effusion) not erythematous and not perforated General nose exam: Normal external nose present Face and sinus: Yes normal facial exam Mouth: Normal oral and pa latal mucosa present Throat: Yes posterior oropharynx normal, Yes tonsils normal and Yes uvula midline Eyes: General: appearance normal, both eyes and all related structures Pupils: Equal, round and reactive pupils present Neck: Neck: Yes normal visual inspection, Yes full ROM, Yes no lymphadenopathy and Yes no meningeal signs Chest: Chest palpation & inspection: normal inspection of the chest Resp: Effort & Inspection: normal respiratory effort Auscultation: clear to auscultation bilaterally Cardio: Rate: regular rate Rhythm: regular rhythm Peripheral pulses: Peripheral pulses 2+ throughout GI: Inspection: Yes normal to inspection Palpation (GI): Soft to palpation and nontender Auscultation: normal bowel sounds Back/Spine/Pelvis: Thoracic/Lumbar Spine: thoracic and lumbar spine normal to inspection Skin: General skin exam: no rashes or lesions noted Neuro: General: patient oriented x3, no meningeal signs, no focal motor deficits and normal sensation to monofilament Cranial nerves: Yes Equal, round and reactive pupils present Cognition (Neuro): normal cognition Speech: No Abnormal speech present Gait exam (Neuro): Normal gait present Motor exam (neuro): 5/5 motor strength present throughout Extrem: General: Yes normal to inspection Course Course Course Narrative: This is a rapid medical exam. deferred additional HPI, ROS, PE to primary provider. 42 yo female with no known medical histor here with complaints of left ear pain, sore throat x 3 days. States everyone at work is sick. No cough, fever, chest pain, shortness of breath. Negative COVID test at home. Will send testing for strep, flu/covid/rsv VSS Reevaluation(s) Reevaluation #1: Testing is negative. Patient tolerating secretions with no difficulty. She does have a left ear effusions but no evidence of acute otitis media. Recommend supportive care at home. Reviewed worrisome signs and symptoms of when to return to the emergency room. Comfortable plan for discharge home. Medications Administered Discontinued Medications Generic Name Dose Route Start Last Admin Trade Name Freq PRN Reason Stop Dose Admin Ibuprofen 600 mg 01/14/23 18:43 01/14/23 19:03 Ibuprofen 600 Mg Tablet PO 01/14/23 18:44 600 mg ONCE ONE Administration Medical Decision Making Medical Decision Making [facility] Narrative: 42-year-old female previously healthy here with complaints of left ear pain and sore throat for 3 days. Patient denies any fevers, chills, cough, chest pain, shortness of breath, difficulty swallowing, difficulty breathing. No recent travel. Patient reports multiple coworkers are sick with similar symptoms. Left TM effusion. Otherwise normal exam. Will send testing for strep, flu, COVID, RSV. Likely viral syndrome Differential Diagnosis Differential Diagnoses: The differential diagnosis associated with the presentation includes Otitis media, otitis externa, low concern for mastoiditis, malignant otitis externa Low concern for strep pharyngitis, epiglottitis, RPA, PSYCHIATRY RESIDENT based on clinical exam Admission/Observation Consideration of admission/observation: Escalation of care including admission/observation considered low concern for mastoiditis, malignant otitis externa, Low concern for strep pharyngitis, epiglottitis, RPA, PSYCHIATRY RESIDENT based on clinical exam suggesting need for advanced imaging or urgent ENT consultation Lab Data [facility] Lab Attestation statement: I reviewed the patient's lab results. Labs: Lab Results 01/14/23 Range/Units 17:40 Influenza Type A (PCR) NEGATIVE (Negative) Influenza Type B (PCR) NEGATIVE (Negative) RSV RNA Qual (PCR) NEGATIVE (Negative) SARS-CoV-2 RNA (RT-PCR) NEGATIVE (Negative) S. pyogenes GrpA DELVIN Negative (Negative) Tests considered The following testing was considered but not selected: low concern for mastoiditis, malignant otitis externa, Low concern for strep pharyngitis, epiglottitis, RPA, PSYCHIATRY RESIDENT based on clinical exam suggesting need for advanced imaging Prescription Management I considered prescription management with: Antibiotic Discharge Plan Discharge Clinical Impression: Viral infection, Acute effusion of left ear Patient Disposition: Home, Self-Care Instructions: Viral Syndrome (ED) Additional Instructions: Testing for flu, covid, rsv are negative Testing for strep throat is negative Alternate motrin or tylenol for pain or fever Prescriptions: No Action ketorolac 10 mg tablet 10 mg PO TID PRN (Reason: pain) 5 Days Qty: 15 0RF diphenhydramine HCl [Benadryl] 25 mg capsule 25 mg PO TID PRN (Reason: allergic reaction) Qty: 20 0RF metoclopramide HCl [Reglan] 10 mg tablet 10 mg PO Q6H PRN (Reason: headache) Qty: 20 0RF Referrals: Physician,Unknown J [Primary Care Provider] - 1 week (as needed-pcp) Stand Alone Forms: Work/School Release
[2023-01-14 17:58] LABS: IDNOW Serial# 6674DD1D; Strep A Nucleic Acid Negative (Negative)
[2023-01-14] MEDS: Ibuprofen 600 MG TABLET PO (19:03)
[2023-01-14 19:19] LABS: Influenza A PCR NEGATIVE (Negative); Influenza B PCR NEGATIVE (Negative); Resp Syncy Virus RNA Qual PCR NEGATIVE (Negative); SARS COV2 PCR INHOUSE NEGATIVE (Negative)
== END 2023-01-14 19:40 | disposition home or self-care (01) ==
PROVIDERS: Nurse Practitioner Family; Emergency Provider Internal Medicine
DX: B34.9 Viral infection, unspecified (principal); H92.02 Otalgia, left ear; Z20.822 Contact with and (suspected) exposure to COVID-19; Z20.828 Contact with and (suspected) exposure to other viral communicable diseases
CPT/HCPCS: 0241U; 87651; 99283

== ENCOUNTER 2023-08-03 12:39 | Emergency (ER) | payer OTHER, SELFPAY ==
--- NOTE | ~2023-08-03 | XR_ITS ---
EXAMINATION: XR CHEST 2 VIEW CLINICAL INFORMATION: CP COMPARISON: 04/26/2020 TECHNIQUE: PA and lateral views of the chest obtained. FINDINGS: The lungs are clear. There are no pleural effusions. The cardiomediastinal silhouette is normal. XR/XR chest 2V IMPRESSION: No acute cardiopulmonary disease.
--- NOTE | 2023-08-03 12:41 | ECG_ITS ---
Test Reason : CHEST PAIN Blood Pressure : / mmHG Vent. Rate : 064 BPM Atrial Rate : 064 BPM P-R Int : 144 ms QRS Dur : 084 ms QT Int : 400 ms P-R-T Axes : 020 029 014 degrees QTc Int : 412 ms Normal sinus rhythm Normal ECG When compared to the previous EKG of No significant changes seen Referred By: Tanya Whyte Electronically Signed By:SINDY YAN MD
--- NOTE | 2023-08-03 12:52 | ED_ITS ---
HPI - Chest Pain General Chief Complaint: Chest Pain Stated Complaint: chest pain Related Data Previous Rx's ?Medication ?Instructions ?Recorded diphenhydramine HCl 25 mg capsule 25 mg PO TID PRN allergic reaction 06/19/22 (Benadryl) #20 caps ketorolac 10 mg tablet 10 mg PO TID PRN pain 5 days #15 06/19/22 tabs metoclopramide HCl 10 mg tablet 10 mg PO Q6H PRN headache #20 tabs 06/19/22 (Reglan) Allergies Allergy/AdvReac Type Severity Reaction Status Date / Time Sulfa (Sulfonamide Allergy Mild RASH Verified 08/03/23 12:55 Antibiotics) [SULFA (SULFONAMIDE ANTIBIOTICS)] [facility] Past Medical History Medical History No known health problems Social History Social History Alcohol intake: unknown Advance Directives: No Advance Directives Information Provided: Yes Physical Exam 2 Vital Signs: Vital Signs: Last Vital Signs Temp 98 F 08/03/23 12:53 Pulse 67 08/03/23 12:53 Resp 18 08/03/23 12:53 BP 135/52 L 08/03/23 12:53 Pulse Ox 98 08/03/23 12:53 BMI result Body Mass Index 23.8 Course Course Course Narrative: This is an RME: Additional HPI, ROS, PE not included below will be deferred to primary provider. RME assessment and note performed by: Tanya Whyte PA-C This is a [id number] with a hx of vertigo, who presents to the ER with a complaints of chest pain x 3 days. Patient reports that she had constant chest pain for the last 2 days however states that today it has been more intermittent. She had shortness for breath yesterday however this has since resolved. She states that she has had intermittent dizziness, history of vertigo. Patient denies any recent surgery, travel, hospitalizations, blood clots or cancer history. Vital signs stable. She is well-appearing. Plan: Labs, EKG, chest x-ray Reevaluation(s) Reevaluation #1: Patient left without completing treatment. Medical Decision Making Lab Data 08/03/23 14:33 08/03/23 14:33 Labs: Lab Results 08/03/23 Range/Units 14:33 WBC 7.0 (4.8-10.8) X10*3/uL RBC 4.12 L (4.20-5.50) X10*6/uL Hgb 11.7 L (12.0-16.0) g/dl Hct 35.5 L (37.0-47.0) % MCV 86.2 (80.0-98.0) fL MCH 28.4 (27.0-33.0) pg MCHC 33.0 (31.0-35.0) g/dl RDW 13.0 (11.0-16.0) % Plt Count 188 (160-400) X10*3/uL MPV 11.6 (9.4-12.3) fL Immature Gran % (Auto) 0.1 (0.0-0.4) % Neut % (Auto) 56.1 (45-73) % Lymph % (Auto) 36.2 (20-40) % [place] % (Auto) 5.6 (2-11) % Eos % (Auto) 1.7 (0-4) % Baso % (Auto) 0.3 (0-2) % Lymph # (Auto) 2.5 (1.2-4.9) X10*3/uL [place] # (Auto) 0.4 (0.1-1.2) X10*3/uL Eos # (Auto) 0.1 (0.0-0.4) X10*3/uL Baso # (Auto) 0.0 (0.0-0.2) X10*3/uL Abs Immat Gran (auto) 0.01 (0.00-0.03) X10*3/uL Absolute Neuts (auto) 3.9 (2.0-8.3) x10*3/uL Absolute Nucleated RBC 0.000 (0.0-0.012) X10*3/uL Nucleated RBC % (auto) 0.0 (0.0-0.2) /100WBC Sodium 138 (135-145) mmol/L Potassium 4.1 (3.3-5.1) mmol/L Chloride 110 H (96-108) mmol/L Carbon Dioxide 20 L (22-29) mmol/L Anion Gap 12 (12-20) BUN 16 (9-16) mg/dL Creatinine 0.59 (0.5-1.4) mg/dL Estim Creat Clear Calc 97.2 Estimated GFR > 60 Random Glucose 107 (60-115) mg/dL Calcium 8.9 (8.4-10.2) mg/dL Total Bilirubin 0.3 (0.0-1.0) mg/dL Direct Bilirubin 0.1 (0.0-0.5) mg/dL AST 17 (5-31) U/L ALT 12 (0-31) U/L Alkaline Phosphatase 47 (39-117) U/L Troponin I High Sens < 2.7 (<3.5-17.0) ng/L Total Protein 7.8 (6.5-8.0) g/dL Albumin 4.1 (3.5-5.0) g/dL Discharge Plan Discharge Clinical Impression: Chest pain Patient Disposition: Left W/O Completing Treatment Prescriptions: No Action ketorolac 10 mg tablet 10 mg PO TID PRN (Reason: pain) 5 Days Qty: 15 0RF diphenhydramine HCl [Benadryl] 25 mg capsule 25 mg PO TID PRN (Reason: allergic reaction) Qty: 20 0RF metoclopramide HCl [Reglan] 10 mg tablet 10 mg PO Q6H PRN (Reason: headache) Qty: 20 0RF Discharge Date/Time: 08/03/23 18:26
[2023-08-03 12:53] VITALS: BP 135/52; PULSE 67; RESP 18; TEMP 36.6; O2SAT 98; BMI 23.8
[2023-08-03 14:37] LABS: MANUAL DIFF FLAG NO
[2023-08-03 14:39] LABS: Basophils Percent Auto 0.3 % (0-2); Eosinophils Absolute Auto 0.1 X10*3/uL (0.0-0.4); Eosinophils Percent Auto 1.7 % (0-4); Hematocrit 35.5 % (37.0-47.0); Hemoglobin 11.7 g/dl (12.0-16.0); Imm Gran Abs Auto 0.01 X10*3/uL (0.00-0.03); Imm Gran Pct Auto 0.1 % (0.0-0.4); Lymphocytes Absolute Auto 2.5 X10*3/uL (1.2-4.9); Lymphocytes Percent Auto 36.2 % (20-40); Mean Corpuscular Hemoglobin 28.4 pg (27.0-33.0); Mean Corpuscular Volume 86.2 fL (80.0-98.0); Mean Platelet Volume 11.6 fL (9.4-12.3); Monocytes Absolute Auto 0.4 X10*3/uL (0.1-1.2); Monocytes Percent Auto 5.6 % (2-11); Neutrophils Absolute Auto 3.9 x10*3/uL (2.0-8.3); Neutrophils Percent Auto 56.1 % (45-73); Platelet Count 188 X10*3/uL (160-400); Red Blood Count 4.12 X10*6/uL (4.20-5.50)
[2023-08-03 14:55] LABS: Alanine Aminotransferase 12 U/L (0-31); Albumin Level 4.1 g/dL (3.5-5.0); Alkaline Phosphatase 47 U/L (39-117); Anion Gap 12 (12-20); Aspartate Amino Transferase 17 U/L (5-31); Bilirubin Direct 0.1 mg/dL (0.0-0.5); Bilirubin Total 0.3 mg/dL (0.0-1.0); Blood Urea Nitrogen 16 mg/dL (9-16); Calcium 8.9 mg/dL (8.4-10.2); Carbon Dioxide 20 mmol/L (22-29); Chloride 110 mmol/L (96-108); Creatinine Clr Calc Pharmacy 97.2; Estimated Glomerular Filt Rate > 60; Glucose Random 107 mg/dL (60-115); Potassium 4.1 mmol/L (3.3-5.1); Sodium 138 mmol/L (135-145); Total Protein 7.8 g/dL (6.5-8.0)
[2023-08-03 15:04] LABS: Troponin-I High Sensitivity < 2.7 ng/L (<3.5-17.0)
== END 2023-08-03 18:26 | disposition left against medical advice (07) ==
PROVIDERS: Physician Assistant Medical; Emergency Provider Emergency Medicine
DX: R07.9 Chest pain, unspecified (principal); Z79.899 Other long term (current) drug therapy
CPT/HCPCS: 36415; 71046; 80048; 80076; 84484; 85025; 93005; 99283

== ENCOUNTER → 2023-08-03 12:41 | Outpatient (BNV) | payer OTHER, SELFPAY | PROVIDERS: Visit Provider Internal Medicine Cardiovascular Disease | DX: R07.9 Chest pain, unspecified (principal) | CPT/HCPCS: 93010 ==

== ENCOUNTER 2024-02-06 11:23 | Emergency (ER) | payer OTHER, SELFPAY ==
--- NOTE | ~2024-02-06 | XR_ITS ---
EXAMINATION: Chest 2 views and right fingers. CLINICAL INDICATION: Chest pain, shortness of breath and cough. Right thumb pain. Fall. COMPARISON: Chest 08/03/2023. FINDINGS: CHEST: The lungs are well-expanded and clear acute process. The heart size and pulmonary vascularity is normal. There is mild extra scoliosis. No gross bony abnormality seen. RIGHT FINGERS: 3 views of right thumb reveals no visible fracture or bony abnormality. The soft tissues are normal. XR/XR finger RT min 2V IMPRESSION: Unremarkable right thumb exam. Unremarkable chest exam. Electronically signed by: Sukhdeep Holden MD 02/06/2024 01:18 PM EST
--- NOTE | ~2024-02-06 | XR_ITS ---
EXAMINATION: Chest 2 views and right fingers. CLINICAL INDICATION: Chest pain, shortness of breath and cough. Right thumb pain. Fall. COMPARISON: Chest 08/03/2023. FINDINGS: CHEST: The lungs are well-expanded and clear acute process. The heart size and pulmonary vascularity is normal. There is mild extra scoliosis. No gross bony abnormality seen. RIGHT FINGERS: 3 views of right thumb reveals no visible fracture or bony abnormality. The soft tissues are normal. XR/XR chest 2V IMPRESSION: Unremarkable right thumb exam. Unremarkable chest exam. Electronically signed by: Sukhdeep Holden MD 02/06/2024 01:18 PM EST
[2024-02-06 12:11] VITALS: BP 120/52; PULSE 100; RESP 18; TEMP 39; O2SAT 100; BMI 23.8
--- NOTE | 2024-02-06 12:12 | ED.GENADULT ---
HPI - General Adult General Chief complaint: Upper Respiratory Symptoms Stated complaint: Body aches Time Seen by Provider: 02/06/24 12:29 Source: patient Mode of arrival: ambulatory Limitations: no limitations History of Present Illness ED Provider: APOLONIA MANNING PA-C HPI narrative: 43 year old female presents to the ED today for evaluation of cough, headache, and myalgias x5 days. She developed a fever of 101F today. 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 She states 3 family members at home recently tested positive for the flu. She did not receive the flu shot this year. Her vaccines are otherwise UTD. No hx of asthma. Denies sore throat, ear pain, sputum production. No recent travel. She also endorses right thumb pain x1 month. She attempted to follow up with her PCP for this however was told she needed to see a specialist. She has had no imaging of the digit. No initial injury or trauma however states that about a week ago she had a fall which exacerbated her right thumb pain. No other concerns. No head strike or LOC. Related Data Previous Rx's ?Medication ?Instructions ?Recorded diphenhydramine HCl 25 mg capsule 25 mg PO TID PRN allergic reaction 06/19/22 (Benadryl) #20 caps ketorolac 10 mg tablet 10 mg PO TID PRN pain 5 days #15 06/19/22 tabs metoclopramide HCl 10 mg tablet 10 mg PO Q6H PRN headache #20 tabs 06/19/22 (Reglan) fluticasone propionate 50 1 spray intranasal DAILY PRN nasal 02/06/24 mcg/actuation nasal congestion #16 grams spray,suspension (Flonase Allergy Relief) guaifenesin 200 mg tablet 200 mg PO TID PRN cough #10 tabs 02/06/24 Allergies Allergy/AdvReac Type Severity Reaction Status Date / Time Sulfa (Sulfonamide Allergy Mild RASH Verified 02/06/24 12:13 Antibiotics) [SULFA (SULFONAMIDE ANTIBIOTICS)] Review of Systems Review of Systems: Yes all other systems are reviewed and are negative PMFSH Past Medical History Attestation statement: The following information was validated with the patient. Source: old records reviewed and nursing notes reviewed Medical History No known health problems Social History Social History Alcohol intake: unknown Advance Directives: No Advance Directives Information Provided: Yes Physical Exam ED Vital Signs: Vital Signs - 24 hr 02/06/24 12:11 Temperature 102.2 F H Pulse Rate 100 Respiratory Rate 18 Blood Pressure 120/52 L Pulse Oximetry 100 Oxygen Delivery Method Room Air BMI result Body Mass Index 23.8 febrile, vitals otherwise wnl General: Well appearing, in no acute distress. Skin: Warm, dry, intact. No rashes or lesions. Head: Normocephalic, atraumatic. EENT: Hearing is intact b/l. Conjunctiva clear. PERRLA. EOM intact. Moist mucous membranes. noted nasal congestion. sinuses nontender to percussion. Neck: Supple without LAD Cardiac: Chest wall symmetric Lungs: Normal respiratory effort without accessory muscle use. CTA bilaterally. No rales, rhonchi, or wheezes.? Abdomen: Soft, non-tender, non-distended Ext: Upper and lower extremities atraumatic, without tenderness, deformity, swelling or erythema. FROM intact to right first digit. strength intact. Neuro: AOx3. Normal speech. Ambulating with steady gait. Psych: Appropriate mood and affect. Responds appropriately to questions. Course Course Course Narrative: This is a rapid medical exam performed by Don Bowles NP: Additional HPI, ROS, PE not included below will be deferred to primary provider. Patient is a 43-year-old female presenting with complaint of congestion, headaches, body aches since Monday. Today developed fever. Plan: viral and strep swabs, CXR Reevaluation(s) Reevaluation #1: Patient tested positive for influenza A. Negative for RSV, covid, and strep, CXR does not demonstrate pneumonia. XR right first digit does not demonstrate fracture. exam is benign and I am not concern for gout/ pseudogout. No indication for labs at this time. She is currently following with her PCP for her right thumb pain and has outpatient follow up with specialist. > her fever has improved to 98 after receiving tylenol. vitals have remained stable. she is not hypoxix. Flonase and guaifenesin sent to pharmacy for symptoms. She was outside of the Tamiflu window. Patient has remained stable throughout ED visit today. Discussed worrisome signs and symptoms and when to return to the ED. All questions answered at this time. Patient is agreeable with disposition and stable for discharge. Medications Administered Discontinued Medications Generic Name Dose Route Start Last Admin Trade Name Hazel PRN Reason Stop Dose Admin Acetaminophen 650 mg 02/06/24 12:14 02/06/24 12:18 Acetaminophen 325 Mg Tablet PO 02/06/24 12:15 650 mg ONCE ONE Administration Medical Decision Making Medical Decision Making [facility] Narrative: 43 year old female presents to the ED today for evaluation of cough, headache, and myalgias x5 days. Initially febrile to 102.2F. Not tachycardic or hypoxic. She is nontoxic appearing and in NAD. Noted nasal congestion. No respiratory distress, no tripoding, no increased effort of breathing. Lungs are CTA bilaterally. Sinuses nontender. Posterior oropharynx WNL. Bilateral EACs WNL Differential diagnosis includes viral syndrome, strep throat, pneumonia, sinusitis, bronchitis. PERC 0 - PE unlikely. Concern for finger contusion, fracture, arthritis. Unlikely ligament/ tendon injury. Presentation not consistent with pseudogout, gout, septic joint. Plan for viral/ strep swabs, chest xray, and finger xray. Tylenol given for fever. Differential Diagnosis Differential Diagnoses: The differential diagnosis associated with the presentation includes as above. Admission/Observation not indicated. Lab Data [facility] Lab Attestation statement: I reviewed the patient's lab results. as above. Labs: Lab Results 02/06/24 Range/Units 12:16 Influenza Type A (PCR) POSITIVE A (Negative) Influenza Type B (PCR) NEGATIVE (Negative) RSV RNA Qual (PCR) NEGATIVE (Negative) SARS-CoV-2 RNA (RT-PCR) NEGATIVE (Negative) S. pyogenes GrpA DELVIN Negative (Negative) Independent Interpretation I performed an independent interpretation of an: Plain X-Ray Interpretation: CXR without infiltrate or consolidation. XR right thumb without fracture. Radiology Impression Discussion of test interpretation with radiology: I have reviewed the radiologist's reading. Radiologist Impression: EXAMINATION: Chest 2 views and right fingers. CLINICAL INDICATION: Chest pain, shortness of breath and cough. Right thumb pain. Fall. COMPARISON: Chest 08/03/2023. FINDINGS: CHEST: The lungs are well-expanded and clear acute process. The heart size and pulmonary vascularity is normal. There is mild extra scoliosis. No gross bony abnormality seen. RIGHT FINGERS: 3 views of right thumb reveals no visible fracture or bony abnormality. The soft tissues are normal. XR/XR finger RT min 2V IMPRESSION: Unremarkable right thumb exam. Unremarkable chest exam. Electronically signed by: Sukhdeep Holden MD 02/06/2024 01:18 PM EST External Record Review External record reviewed: Inpatient record Prescription Management I considered prescription management with: Other (Flonase, guaifenesin) Social Determinants Patient?s care significantly limited by Social Determinants of Health including: Other Social Determinant of Health Critical Care Time Critical Care Time Critical Care Time: No Discharge Plan Discharge Clinical Impression: Influenza A Patient Disposition: Home, Self-Care Instructions: Influenza (ED) Additional Instructions: You tested positive for influenza A. You tested negative for covid, rsv, and strep throat. Your chest x-ray was normal. Influenza is a virus and does not require treatment with antibiotics. As discussed, you are currently out of the treatment window for Tamiflu. Treatment is otherwise symptomatic. I have sent guaifenesin to your pharmacy for you to take as needed for cough. Alter ibuprofen and Tylenol for fevers and body aches. You may also purchase [id number] Chloraseptic spray tp spray at the back of the throat for throat pain. Follow up with your primary care provider. If symptoms persist or worsen please return to the emergency department. The case of an emergency call 911. The xray of your thumb does not reveal fracture. Follow up with specialist as planned. Prescriptions: New guaifenesin 200 mg tablet 200 mg PO TID PRN (Reason: cough) Qty: 10 0RF fluticasone propionate [Flonase Allergy Relief] 50 mcg/actuation spray,suspension 1 spray intranasal DAILY PRN (Reason: nasal congestion) Qty: 16 0RF Rx Instructions: administer into each nostril. do not use more than 3 days in a row. No Action ketorolac 10 mg tablet 10 mg PO TID PRN (Reason: pain) 5 Days Qty: 15 0RF diphenhydramine HCl [Benadryl] 25 mg capsule 25 mg PO TID PRN (Reason: allergic reaction) Qty: 20 0RF metoclopramide HCl [Reglan] 10 mg tablet 10 mg PO Q6H PRN (Reason: headache) Qty: 20 0RF Referrals: [facility] [place] [facility], [facility] [Provider Group] [facility] [place] [facility],May [Provider Group] Stand Alone Forms: Work/School Release Interventions: ED Discharge Assessment Last Done: 02/06/24 14:29 Discharge Date/Time: 02/06/24 14:33 Print Language: Ivorian
[2024-02-06] MEDS: Acetaminophen 325 MG TABLET 650 MG PO (12:18)
[2024-02-06 12:36] LABS: IDNOW Serial# 58CA691E; Strep A Nucleic Acid Negative (Negative)
[2024-02-06 12:57] LABS: Influenza A PCR POSITIVE (Negative); Influenza B PCR NEGATIVE (Negative); Resp Syncy Virus RNA Qual PCR NEGATIVE (Negative); SARS COV2 PCR INHOUSE NEGATIVE (Negative)
[2024-02-06 14:29] VITALS: BP 119/62; PULSE 93; RESP 18; TEMP 36.8; O2SAT 98
== END 2024-02-06 14:33 | disposition home or self-care (01) ==
PROVIDERS: Registered Nurse Emergency; Emergency Provider Emergency Medicine
DX: J10.1 Influenza due to other identified influenza virus with other respiratory manifestations (principal); M79.10 Myalgia, unspecified site; M79.644 Pain in right finger(s); R07.89 Other chest pain; R50.9 Fever, unspecified; R06.02 Shortness of breath; R05.9 Cough, unspecified; R51.9 Headache, unspecified; Z03.818 Encounter for observation for suspected exposure to other biological agents ruled out; Z79.899 Other long term (current) drug therapy
CPT/HCPCS: 0241U; 71046; 73140; 87651; 99283

== ENCOUNTER → 2024-02-06 12:13 | Outpatient (BNV) | payer OTHER, SELFPAY | PROVIDERS: Emergency Provider Emergency Medicine; Visit Provider Radiology Diagnostic Radiology | DX: R07.9 Chest pain, unspecified (principal); M79.644 Pain in right finger(s) | CPT/HCPCS: 71046; 73140 ==

== ENCOUNTER 2024-05-04 20:58 | Emergency (ER) | payer OTHER, SELFPAY ==
--- NOTE | ~2024-05-04 | CT_ITS ---
CLINICAL HISTORY: RLQ pain tenderness. S P jamila CT abdomen and pelvis with contrast Comparison: None Findings: Diffuse esophageal mural thickening, nonspecific. Hepatomegaly with steatosis. Splenule. No hydronephrosis. Diffuse rectal, colonic, small bowel and gastric mural thickening with mucosal hyperemia. No bowel obstruction. Bilateral pelvic varices. Colonic diverticulosis without focal diverticulitis. Normal appendix. Trace free pelvic fluid. Possible tiny bilateral adnexal cysts. The bones are intact. Postcholecystectomy. IMPRESSION: 1. Findings suggestive of diffuse gastroenteritis and proctocolitis. 2. Trace free pelvic fluid. This document has been electronically signed by: Mitch Alcaraz MD on 05/05/2024 02:29:37
[2024-05-04 21:09] VITALS: BP 123/62; PULSE 96; RESP 16; TEMP 37.4; O2SAT 96; BMI 25.9
[2024-05-04 21:25] LABS: MANUAL DIFF FLAG NO
[2024-05-04 21:27] LABS: Basophils Percent Auto 0.3 % (0-2); Eosinophils Absolute Auto 0.1 X10*3/uL (0.0-0.4); Eosinophils Percent Auto 0.8 % (0-4); Hematocrit 37.5 % (37.0-47.0); Hemoglobin 12.4 g/dl (12.0-16.0); Imm Gran Abs Auto 0.02 X10*3/uL (0.00-0.03); Imm Gran Pct Auto 0.3 % (0.0-0.4); Lymphocytes Absolute Auto 0.6 X10*3/uL (1.2-4.9); Lymphocytes Percent Auto 7.8 % (20-40); Mean Corpuscular HGB Conc 33.1 g/dl (31.0-35.0); Mean Corpuscular Hemoglobin 28.2 pg (27.0-33.0); Mean Corpuscular Volume 85.2 fL (80.0-98.0); Monocytes Absolute Auto 0.4 X10*3/uL (0.1-1.2); Monocytes Percent Auto 5.7 % (2-11); Neutrophils Absolute Auto 6.1 x10*3/uL (2.0-8.3); Neutrophils Percent Auto 85.1 % (45-73); Platelet Count 225 X10*3/uL (160-400); Red Cell Distribution Width 13.1 % (11.0-16.0); White Blood Count 7.1 X10*3/uL (4.8-10.8)
[2024-05-04 21:28] LABS: Appearance Urine Clear; Color Urine Dark Yellow; Glucose Urine UA Negative (Negative); Leukocyte Esterase Urine Negative (Negative); Nitrite Urine Negative (Negative); PH 5.5 (5.0-9.0); Specific Gravity - Urine >= 1.030 (1.005-1.025); UMIC TRIGGER UACC YES; Urine Blood Large (3+) (Negative); Urine Ketones 15 mg/dL (Negative); Urine Protein 30 (1+) mg/dL (Neg-Trace)
[2024-05-04 21:31] LABS: Bacteria Urine None Seen (None Seen); RBC Urine >20 /HPF (0-2); WBC Urine 0-5 /HPF (0-5)
[2024-05-04 21:40] LABS: Anion Gap 12 (12-20); Blood Urea Nitrogen 19 mg/dL (9-16); Carbon Dioxide 23 mmol/L (22-29); Chloride 108 mmol/L (96-108); Creatinine Clr Calc Pharmacy 95.7; Estimated Glomerular Filt Rate > 60; Glucose Random 134 mg/dL (60-115); Potassium 4.2 mmol/L (3.3-5.1); Sodium 139 mmol/L (135-145)
[2024-05-04 22:03] LABS: Influenza A PCR NEGATIVE (Negative); Influenza B PCR NEGATIVE (Negative); Resp Syncy Virus RNA Qual PCR NEGATIVE (Negative); SARS COV2 PCR INHOUSE NEGATIVE (Negative)
[2024-05-04 22:39] VITALS: BP 118/63; PULSE 90; RESP 16
--- NOTE | 2024-05-04 22:39 | PC.NURSE ---
Patient presents with c/o N/V/D with assoc lwer abdominal pain. Unable to keep anything down.
--- NOTE | 2024-05-05 01:06 | ED_ITS ---
HPI - General Adult General Chief complaint: Abdominal Pain Stated complaint: vomiting,headache Time Seen by Provider: 05/05/24 01:05 History of Present Illness ED Provider: Beth BELTRAN narrative: The patient is a 43-year-old woman with a history of a cholecystectomy who says that she started to feel ill at around 09:00 this morning. She was at work when she developed nausea and chills. She went home. She developed vomiting and also had some diarrhea. Throughout the day she tried multiple times to take oral intake but each time she tried to take something by mouth she would vomited. Ultimately she came to the emergency room. When I saw her she was still feeling nauseated. She said that she really was not having a great deal of abdominal pain although she found her abdominal exam uncomfortable, particularly with the palpation in the right lower quadrant. Related Data Previous Rx's ?Medication ?Instructions ?Recorded diphenhydramine HCl 25 mg capsule 25 mg PO TID PRN allergic reaction 06/19/22 (Benadryl) #20 caps ketorolac 10 mg tablet 10 mg PO TID PRN pain 5 days #15 06/19/22 tabs metoclopramide HCl 10 mg tablet 10 mg PO Q6H PRN headache #20 tabs 06/19/22 (Reglan) fluticasone propionate 50 1 spray intranasal DAILY PRN nasal 02/06/24 mcg/actuation nasal congestion #16 grams spray,suspension (Flonase Allergy Relief) guaifenesin 200 mg tablet 200 mg PO TID PRN cough #10 tabs 02/06/24 ondansetron 4 mg disintegrating 4 mg PO Q6H PRN nausea and 05/05/24 tablet vomiting #10 tabs Allergies Allergy/AdvReac Type Severity Reaction Status Date / Time Sulfa (Sulfonamide Allergy Mild RASH Verified 05/04/24 21:11 Antibiotics) [SULFA (SULFONAMIDE ANTIBIOTICS)] Review of Systems 2 Review of Systems: Yes all other systems are reviewed and are negative PMFSH Past Medical History Medical History No known health problems Social History Social History Alcohol intake: unknown Physical Exam ED Vital Signs: Vital Signs - 24 hr 05/04/24 21:09 05/04/24 22:39 05/05/24 01:41 Temperature 99.3 F 99.1 F Pulse Rate 96 90 75 Respiratory Rate 16 16 14 Blood Pressure 123/62 118/63 112/60 Pulse Oximetry 96 98 Oxygen Delivery Method Room Air Room Air Oxygen Flow Rate 96 05/05/24 02:57 05/05/24 03:40 Temperature 99.1 F 98.6 F Pulse Rate 82 82 Respiratory Rate 14 14 Blood Pressure 98/49 L 100/50 L Pulse Oximetry 98 98 Oxygen Delivery Method Room Air Room Air Oxygen Flow Rate BMI result Body Mass Index 25.9 Const Other: The patient is awake, alert, pleasant, cooperative. She looks mildly unwell but not in distress. Orientation/consciousness: patient oriented x3 HENMT Other: Face is symmetrical. Mucous membranes moist. Eyes General: appearance normal, both eyes and all related structures Neck Neck: Yes full ROM Resp Effort & Inspection: normal respiratory effort Auscultation: clear to auscultation bilaterally Cardio Rate: regular rate Rhythm: regular rhythm Heart sounds: S1 normal heart sound present and S2 normal heart sound present GI Other: The patient is tender in both lower quadrants but she is particularly tender in the right lower quadrant. General: Yes no CVA tenderness Back/Spine/Pelvis Back: no CVA tenderness Skin General skin exam: no rashes or lesions noted Neuro General: patient oriented x3, moves all extremities, no focal motor deficits and CN's II-XI intact bilaterally Extrem General: Yes no pedal edema and Yes no calf tenderness Medications Administered Discontinued Medications Generic Name Dose Route Start Last Admin Trade Name Freq PRN Reason Stop Dose Admin Sodium Chloride 1,000 mls @ 999 mls/hr 05/05/24 01:15 05/05/24 02:45 Ns IV 05/05/24 02:15 Infused .Q1H1M ALYCIA Infusion Iohexol 85 ml 05/05/24 02:02 05/05/24 02:02 Iohexol 350 Mg/Ml 100 Ml Infus..Btl IV 05/05/24 02:03 85 ml ONCE ONE Administration Ondansetron HCl 4 mg 05/05/24 01:15 05/05/24 01:43 Ondansetron Hcl 4 Mg/2 Ml Vial IVPUSH 05/05/24 01:16 4 mg ONCE ONE Administration Medical Decision Making Medical Decision Making MDM Narrative: The patient presents with a 1 day history of abdominal symptoms, primarily nausea and vomiting. She was not complaining much in the way of pain but she was quite tender in her right lower quadrant. She has a history of cholecystectomy. Labs were unremarkable. CT scan was done to evaluate for the possibility of appendicitis. The CT scan was read as showing signs of gastroenteritis and possibly proctocolitis but a normal appendix was visualized. Patient was given IV fluids and ondansetron. Her symptoms improved. She was able to tolerate oral intake. She will be discharged with a prescription for ondansetron. Lab Data 05/04/24 21:17 05/04/24 21:17 Labs: Lab Results 05/04/24 05/05/24 Range/Units 21:17 21:17 WBC 7.1 (4.8-10.8) X10*3/uL RBC 4.40 (4.20-5.50) X10*6/uL Hgb 12.4 (12.0-16.0) g/dl Hct 37.5 (37.0-47.0) % MCV 85.2 (80.0-98.0) fL MCH 28.2 (27.0-33.0) pg MCHC 33.1 (31.0-35.0) g/dl RDW 13.1 (11.0-16.0) % Plt Count 225 (160-400) X10*3/uL MPV 11.0 (9.4-12.3) fL Immature Gran % (Auto) 0.3 (0.0-0.4) % Neut % (Auto) 85.1 H (45-73) % Lymph % (Auto) 7.8 L (20-40) % [place] % (Auto) 5.7 (2-11) % Eos % (Auto) 0.8 (0-4) % Baso % (Auto) 0.3 (0-2) % Lymph # (Auto) 0.6 L (1.2-4.9) X10*3/uL [place] # (Auto) 0.4 (0.1-1.2) X10*3/uL Eos # (Auto) 0.1 (0.0-0.4) X10*3/uL Baso # (Auto) 0.0 (0.0-0.2) X10*3/uL Abs Immat Gran (auto) 0.02 (0.00-0.03) X10*3/uL Absolute Neuts (auto) 6.1 (2.0-8.3) x10*3/uL Absolute Nucleated RBC 0.000 (0.0-0.012) X10*3/uL Nucleated RBC % (auto) 0.0 (0.0-0.2) /100WBC Sodium 139 (135-145) mmol/L Potassium 4.2 (3.3-5.1) mmol/L Chloride 108 (96-108) mmol/L Carbon Dioxide 23 (22-29) mmol/L Anion Gap 12 (12-20) BUN 19 H (9-16) mg/dL Creatinine 0.66 (0.5-1.4) mg/dL Estim Creat Clear Calc 95.7 Estimated GFR > 60 Random Glucose 134 H (60-115) mg/dL Calcium 9.0 (8.4-10.2) mg/dL Urine Color Dark Yellow Urine Appearance Clear Urine pH 5.5 (5.0-9.0) Ur Specific [place] >= 1.030 H (1.005-1.025) Urine Protein 30 (1+) H (Neg-Trace) mg/dL Urine Glucose (UA) Negative (Negative) mg/dL Urine Ketones 15 (Negative) mg/dL Urine Blood Large (3+) H (Negative) Urine Nitrite Negative (Negative) Ur Leukocyte Esterase Negative (Negative) Urine RBC >20 H (0-2) /HPF Urine WBC 0-5 (0-5) /HPF Ur Squamous Epith Cells 3-5 (0-2) /HPF Urine Bacteria None Seen (None Seen) Hyaline Casts 3-5 (0-2) /LPF Urine Test NEGATIVE (NEGATIVE) Influenza Type A (PCR) NEGATIVE (Negative) Influenza Type B (PCR) NEGATIVE (Negative) RSV RNA Qual (PCR) NEGATIVE (Negative) SARS-CoV-2 RNA (RT-PCR) NEGATIVE (Negative) Discharge Plan Discharge Clinical Impression: Nausea and vomiting Patient Disposition: Home, Self-Care Instructions: Acute Nausea and Vomiting (ED) Additional Instructions: I have sent a prescription for the medication ondansetron to your pharmacy. This is a medication to help with nausea. You may use this medication as needed if necessary. Take clear fluids for the next couple of days. Eat simple foods like toast or well cooked rice or applesauce or bananas. Please contact your regular doctor's office for additional advice as needed. Return to the emergency room if significantly worse. Prescriptions: New ondansetron 4 mg tablet,disintegrating 4 mg PO Q6H PRN (Reason: nausea and vomiting) Qty: 10 0RF No Action ketorolac 10 mg tablet 10 mg PO TID PRN (Reason: pain) 5 Days Qty: 15 0RF diphenhydramine HCl [Benadryl] 25 mg capsule 25 mg PO TID PRN (Reason: allergic reaction) Qty: 20 0RF metoclopramide HCl [Reglan] 10 mg tablet 10 mg PO Q6H PRN (Reason: headache) Qty: 20 0RF guaifenesin 200 mg tablet 200 mg PO TID PRN (Reason: cough) Qty: 10 0RF fluticasone propionate [Flonase Allergy Relief] 50 mcg/actuation spray,suspension 1 spray intranasal DAILY PRN (Reason: nasal congestion) Qty: 16 0RF Rx Instructions: administer into each nostril. do not use more than 3 days in a row. Referrals: Babar Worthington MD [Primary Care Provider] - (vomiting) Interventions: ED Discharge Assessment Last Done: 05/05/24 03:40 Discharge Date/Time: 05/05/24 03:41 Print Language: Yi
[2024-05-05 01:27] LABS: UPreg QC Valid YES; Urine Pregnancy NEGATIVE (NEGATIVE)
[2024-05-05 01:41] VITALS: BP 112/60; PULSE 75; RESP 14; TEMP 37.3; O2SAT 98
[2024-05-05] MEDS: 0.9 % Sodium Chloride 1,000 ML 999 ML IV (01:43)
[2024-05-05] MEDS: ondansetron HCL 4 MG/2 ML VIAL IVPUSH (01:43)
[2024-05-05] MEDS: iohexoL 350 MG/ML 100 ML INFUS..BTL 85 ML IV (02:02)
[2024-05-05 02:57] VITALS: BP 98/49; PULSE 82; RESP 14; TEMP 37.3; O2SAT 98
--- NOTE | 2024-05-05 03:38 | PC.NURSE ---
Reviewed discharge instructions wt pt. pt verbalized understanding, Iv removed, no sign of distress. pt had a steady gait upon discharge
[2024-05-05 03:40] VITALS: BP 100/50; PULSE 82; RESP 14; TEMP 37; O2SAT 98
== END 2024-05-05 03:41 | disposition home or self-care (01) ==
PROVIDERS: Emergency Provider Emergency Medicine; PCP Pediatrics
DX: R11.2 Nausea with vomiting, unspecified (principal); R19.7 Diarrhea, unspecified; R10.31 Right lower quadrant pain; Z03.818 Encounter for observation for suspected exposure to other biological agents ruled out; Z79.899 Other long term (current) drug therapy
CPT/HCPCS: 0241U; 36415; 74177; 80048; 81001; 81025; 85025; 96361; 96374; 99284; J2405; Q9967

== ENCOUNTER → 2024-05-05 01:14 | Outpatient (BNV) | payer OTHER, SELFPAY | PROVIDERS: Emergency Provider Emergency Medicine; PCP Pediatrics; Visit Provider Radiology Diagnostic Radiology | DX: R10.31 Right lower quadrant pain (principal) | CPT/HCPCS: 74177 ==

== ENCOUNTER → 2024-09-03 11:56 | Outpatient (BNVA) | payer SELFPAY | PROVIDERS: PCP Pediatrics; Visit Provider Registered Nurse | DX: Z02.1 Encounter for pre-employment examination (principal) ==